=== PATIENT | male | born 1955 | race Caucasian/White ===

== ENCOUNTER 2021-01-23 11:02 | Day surgery (SDC) | payer BC, SELFPAY ==
--- NOTE | 2021-01-09 16:45 | HP_ITS ---
DATE OF SERVICE: 01/23/2021 DATE OF PROPOSED SURGERY: 1. January 23, 2021 for his left foot. 2. February 13, 2021 for his right foot. PREOPERATIVE DIAGNOSES: 1. For January 23 is hallux rigidus, left foot. Planned procedure for that date is López bunionectomy, left. 2. For the date of surgery of February 13, 2021 is hallux rigidus, right foot and planned procedure is López bunionectomy of the right foot. CHIEF COMPLAINT AND HISTORY OF PRESENT ILLNESS: Christopher Carter is a 65-year-old male who relates history of painful, stiff, inflamed great toe joints in bilateral feet, left more advanced than the right, present over the past several years duration. He relates his condition has progressively worsened over time and is aggravated by shoe gear walking activity. Conservative treatment consisting of altered extra-depth shoes as well as rest has proven ineffective and the patient is now requesting surgical treatment. PAST MEDICAL HISTORY: Unremarkable. MEDICATIONS: The patient takes multivitamins, vitamin C, D and zinc. ALLERGIES: THE PATIENT HAS NO KNOWN ALLERGIES OR DRUG SENSITIVITIES. FAMILY HISTORY: Significant for arthritis. SOCIAL HISTORY: The patient denies smoking, denies use of recreational drugs. The patient does drink alcohol typically 1 or 2 drinks per day and typically drinks caffeine 1 to 2 cups of coffee per day. PHYSICAL EXAMINATION: VASCULAR EXAM: The patient displays +2/4 pulses. DP and PT arteries bilateral with normal cap refill time noted in bilateral feet. DERMATOLOGIC EXAM: Reveals intact skin bilateral. ORTHOPEDIC EXAM: Reveals pain on palpation of the dorsal prominent bone, 1st metatarsophalangeal joint bilateral with painful limited range of motion of bilateral first metatarsophalangeal joint. NEUROLOGIC EXAM: Reveals intact sensation. The patient was seen most recently in my office on January 07, 2021. Preoperative informed consent was obtained for his left foot first. Preoperative medical clearance will be provided by Dr. Arnulfo Sy. CAROLA Rodriguez/JAYDEN / [id number]
[2021-01-20 12:01] VITALS: BMI 27.4
--- NOTE | 2021-01-21 10:44 | HO.ANESPROP2 ---
Documented by User: Rose Stern 01/21/21 10:44 HPI - Anesthesia Eval Consult details Narrative: 65yo M for Left López Bunionectomy [facility] Past Medical History Medical History COVID-19 vaccine administered Hx of renal calculi Surgical History Surgical History H/O colonoscopy Hx of shoulder surgery Social History Social History Household Members: None Housing: House Are you a primary care transition coordinator to a significant other at home: No Do you presently have visiting nurse or other home services: No Smoking Status: Former smoker Smoking Quit Date: 2010 Use of substances other than those prescribed or required for medical reasons: No Have you been hit, kicked, punched, or otherwise hurt by someone within the past year? If so, by whom?: No Are you DNR?: No Advance Directives Information Provided: No Recently lost weight without trying: No Eating poorly because of decreased appetite: No Nutrition Risks: No Nutritional Risk Poor oral hygiene: No Meds Allergies Allergy/AdvReac Type Severity Reaction Status Date / Time No Known Allergies Allergy Verified 01/23/21 10:59 [No Known Allergies*] Home Medications Medication Instructions Recorded Confirmed Last Taken Type cholecalciferol (vitamin D3) 10 mcg PO DAILY 01/20/21 01/20/21 Unknown History [Vitamin D3] multivitamin 1 tab PO DAILY 01/20/21 01/20/21 Unknown History Exam Exam Date and Time: January 21, 2021 1044 Height,Weight and Vital Signs: Height 5 ft 6 in Weight 77.111 kg Assessment and Plan Assessment Anesthesia Assessment: Chart Reviewed Documented by User: Abbi Mcgovern 01/23/21 13:08 [facility] Past Medical History Medical History COVID-19 vaccine administered Hx of renal calculi Surgical History Surgical History H/O colonoscopy Hx of shoulder surgery Social History Social History Household Members: None Housing: House Are you a primary care transition coordinator to a significant other at home: No Do you presently have visiting nurse or other home services: No Smoking Status: Former smoker Smoking Quit Date: 2010 Use of substances other than those prescribed or required for medical reasons: No Have you been hit, kicked, punched, or otherwise hurt by someone within the past year? If so, by whom?: No Are you DNR?: No Advance Directives Information Provided: No Recently lost weight without trying: No Eating poorly because of decreased appetite: No Nutrition Risks: No Nutritional Risk Poor oral hygiene: No Meds Allergies Allergy/AdvReac Type Severity Reaction Status Date / Time No Known Allergies Allergy Verified 01/23/21 10:59 [No Known Allergies*] Home Medications Medication Instructions Recorded Confirmed Last Taken Type cholecalciferol (vitamin D3) 10 mcg PO DAILY 01/20/21 01/20/21 Unknown History [Vitamin D3] multivitamin 1 tab PO DAILY 01/20/21 01/20/21 Unknown History Exam Airway Mallampati Class: II TM Dist: >3cm Loose/Missing/Broken Teeth: No Heart: RRR Lungs: CTA Assessment and Plan Assessment Anesthesia Assessment: Anesthesia Plan Discussed and Chart Reviewed Final Anesthetic Review NPO: Yes ASA Class: II Final Preanesthetic Review: Meds/Allgs Chart Reviewed, Consent Obtained/Reviewed and Anes Risks/Benef Reviewed Patient Risk: Low Procedure Risk: Low Anesthetic Plan Anesthetic Plan: MAC: Disposition: Standard PACU
[2021-01-23 11:04] VITALS: BP 131/80; PULSE 67; RESP 20; TEMP 36.4; O2SAT 97
[2021-01-23] MEDS: Lactated Ringers 1,000 ML 50 ML IV (11:23)
--- NOTE | 2021-01-23 11:59 | MHC.SHP ---
Pre-Procedural Eval Section B Chief Complaint: Hallux Rigidus Left foot Allergies: Allergies Allergy/AdvReac Type Severity Reaction Status Date / Time No Known Allergies Allergy Verified 01/23/21 10:59 [No Known Allergies*] Plan I have reviewed the history and physical and performed a pertinent physical examination on my patient. No changes have occurred unless specified.
--- NOTE | 2021-01-23 13:13 | PCN2_ITS ---
Brief Operative Note Date of procedure: 01/23/21 Pre-op diagnosis: hallux rigidus left Post-op diagnosis: same Procedure: kimbrough bunionectomy left Anesthesia: MAC Surgeon: Edgar Montelongo Senior Engineering Associate: Alicia Jensen Estimated blood loss (mL): 1.0 Condition: stable Disposition: PACU
[2021-01-23 13:16] VITALS: BP 125/79; PULSE 69; RESP 16; TEMP 36.6; O2SAT 98
[2021-01-23 13:29] VITALS: BP 151/80; PULSE 62; RESP 18; O2SAT 98
[2021-01-23 13:38] VITALS: BP 138/76; PULSE 57; RESP 18; O2SAT 100
--- NOTE | 2021-01-30 10:45 | OP_ITS ---
SURGEON: Edgar Montelongo DPM PREOPERATIVE DIAGNOSIS: Hallux rigidus, left foot. POSTOPERATIVE DIAGNOSIS: Hallux rigidus, left foot. PROCEDURE PERFORMED: Chang bunionectomy, left foot. ESTIMATED BLOOD LOSS: COMPLICATIONS: ANESTHESIA: Consisted of local administration of a total of 12 mL of an equal mix of 2% lidocaine with epinephrine 1:100,000 and 0.5% Marcaine plain. Intravenous sedation was provided by the anesthesia department. ANESTHESIOLOGIST: Dr. Anti.Dr. Mcgovern. ASSISTANTS: Dr. Jensen. SPECIMENS: INTRODUCTION: The patient was brought to the operating room, placed on the operating table in supine position. After having been suitably anesthetized with local infiltrative anesthesia, the left lower extremity was then prepped and draped in usual sterile manner. Please note that prior to start of the procedure, the left foot was exsanguinated utilizing Esmarch bandage and left ankle tourniquet was inflated to 250 mmHg pressure for the duration of the procedure. CHANG BUNIONECTOMY, LEFT FOOT. Attention was directed to the dorsum of the left foot, where a dorsal linear incision approximately 7 cm in length was effected and centered over the dorsum of the left first metatarsophalangeal joint. The incision was deepened in same plane and hemostasis was acquired as necessary. The skin margins were underscored and retracted. A dorsal linear capsule incision was then effected over the dorsum of the first MTP joint and the capsule and periosteum were underscored and retracted. Please note that there were noted to be several joint osteophytes that were loose on the dorsum of the first metatarsophalangeal joint and these were excised via sharp dissection. Utilizing sagittal saw, the hypertrophic dorsal and medial eminence of the first metatarsal head was resected. A McGlamry elevator was then introduced to free the adhesions along the plantar aspect of the first metatarsal head and then utilizing bone cutting forceps, bone rongeur, hypertrophic bone from the dorsal lateral aspect of the first metatarsal head as well as dorsum medial and lateral aspect of the proximal phalangeal base was effected. The sagittal saw was then reintroduced and first metatarsal head distal aspect was resected in a modified Jose fashion to remove some more redundant bone and damaged cartilage from the articular surface of the first metatarsal head. The power reciprocating rasp was then utilized and then bone was rasped smooth on both the metatarsal and proximal phalangeal base. The surgical site was flushed with sterile saline and then the capsule was closed with 3-0 Dexon. One half of a 3 cm x 3 cm AmnioFix was placed inside the capsule during closure. The subcutaneous tissue was closed with 4-0 Monocryl in a continuous fashion and the skin margins were closed then with a ZipLine [place] wound closure. The second half of the AmnioFix was placed in the deep subcutaneous tissue during skin closure. The operative site was then injected with a total of 5 mL of Marcaine 0.5% plain, 1 mL of dexamethasone phosphate. The operative site was dressed with sterile Betadine-soaked gauze, Kerlix fluffs, 4-inch Conform. The left ankle tourniquet was deflated and normal blood flow was reestablished to the left lower extremity. FINAL DISPOSITION: The patient is discharged to home with instructions for self-care and include the followin. To keep the dressings dry, clean, and intact. 2. To keep the left leg elevated with ice above the ankle. 3. Take all medications as prescribed. 4. To limit activity to minimum. 5. To always use surgical shoe and crutches when ambulating, partial weightbearing left foot. 6. The patient has prescriptions for Motrin or ibuprofen 800 mg total number 90, one p.o. t.i.d. p.c., gabapentin 400 mg total number of 20 to take 1 p.o. daily at bedtime, and lastly prescription for oxycodone 5 mg total number 20 to take 1 p.o. q.6h p.r.n. pain. CAROLA Rodriguez / [id number]
== END 2021-01-23 14:23 | disposition home or self-care (01) ==
PROVIDERS: PCP Internal Medicine Endocrinology, Diabetes & Metabolism; Visit Provider Podiatrist
PROC: (CPT 28292; principal; 2021-01-23 12:40)
DX: M20.22 Hallux rigidus, left foot (principal); M25.775 Osteophyte, left foot; Z87.891 Personal history of nicotine dependence
CPT/HCPCS: 28292; 28122; 88304; 88311; J0690; J1100; J2250; J3010; J3590

== ENCOUNTER 2021-02-13 09:19 | Day surgery (SDC) | payer BC, SELFPAY ==
[2021-01-20 12:09] VITALS: BMI 27.4
--- NOTE | 2021-02-11 17:49 | HP_ITS ---
DATE OF SERVICE: 02/13/2021 DATE OF PROPOSED SURGERY: February 13, 2021. PREOPERATIVE DIAGNOSIS: Hallux rigidus, right foot. PLANNED PROCEDURE: López bunionectomy, right foot. PLANNED ANESTHSIA: MAC anesthesia. Chief complaint, history of present illness, past medical history, medications, allergies, and physical exam are all unchanged from the previous dictation history and physical by myself dated on January 09, 2021. Medical record number, dictation number at that point was [id number]. Please refer to the preoperative medical clearance has been provided by his primary care physician, Dr. Bhavesh Paniagua. CAROLA Rodriguez/JAYDEN / [id number]
--- NOTE | 2021-02-12 11:03 | HO.ANESPROP2 ---
Documented by User: Rose Stern 02/12/21 11:04 HPI - Anesthesia Eval Consult details Narrative: 65yo M for Right López Bunionectomy s/p left López Bunionectomy 01/2021 with MAC PCP cleared COUNTS INCLUDE 234 BEDS AT THE [facility] Past Medical History Medical History COVID-19 vaccine administered Hx of renal calculi Surgical History Surgical History H/O colonoscopy Hx of shoulder surgery Status post left foot surgery Social History Social History Household Members: None Housing: House Are you a primary vision care associate to a significant other at home: No Do you presently have visiting nurse or other home services: No Use of substances other than those prescribed or required for medical reasons: No Have you been hit, kicked, punched, or otherwise hurt by someone within the past year? If so, by whom?: No Are you DNR?: No Advance Directives Information Provided: No Recently lost weight without trying: No Eating poorly because of decreased appetite: No Nutrition Risks: No Nutritional Risk Poor oral hygiene: No Meds Allergies Allergy/AdvReac Type Severity Reaction Status Date / Time No Known Allergies Allergy Verified 02/13/21 09:24 [No Known Allergies*] Home Medications Medication Instructions Recorded Confirmed Last Taken Type cholecalciferol (vitamin D3) 10 mcg PO DAILY 01/20/21 01/20/21 Unknown History [Vitamin D3] multivitamin 1 tab PO DAILY 01/20/21 01/20/21 Unknown History Exam Exam Date and Time: February 12, 2021 1103 Height,Weight and Vital Signs: Height 5 ft 6 in Weight 77.111 kg Assessment and Plan Assessment Anesthesia Assessment: Chart Reviewed Documented by User: Marjorie Daily 02/13/21 10:17 COUNTS INCLUDE 234 BEDS AT THE [facility] Past Medical History Medical History COVID-19 vaccine administered Hx of renal calculi Family History Family history of problems with anesthesia: No Surgical History Surgical History H/O colonoscopy Hx of shoulder surgery Status post left foot surgery History of Problems with Anesthesia: No Social History Social History Household Members: None Housing: House Are you a primary vision care associate to a significant other at home: No Do you presently have visiting nurse or other home services: No Use of substances other than those prescribed or required for medical reasons: No Have you been hit, kicked, punched, or otherwise hurt by someone within the past year? If so, by whom?: No Are you DNR?: No Advance Directives Information Provided: No Recently lost weight without trying: No Eating poorly because of decreased appetite: No Nutrition Risks: No Nutritional Risk Poor oral hygiene: No Meds Allergies Allergy/AdvReac Type Severity Reaction Status Date / Time No Known Allergies Allergy Verified 02/13/21 09:24 [No Known Allergies*] Home Medications Medication Instructions Recorded Confirmed Last Taken Type cholecalciferol (vitamin D3) 10 mcg PO DAILY 01/20/21 01/20/21 Unknown History [Vitamin D3] multivitamin 1 tab PO DAILY 01/20/21 01/20/21 Unknown History Exam Height,Weight and Vital Signs: Vital Signs Temp Pulse Resp BP Pulse Ox 02/13/21 09:27 97.7 F 64 16 138/78 98 Airway Mallampati Class: II TM Dist: >3cm Neck ROM: Full Heart: RRR Lungs: CTAB Assessment and Plan Assessment Anesthesia Assessment: Anesthesia Plan Discussed and Chart Reviewed Final Anesthetic Review NPO: Yes ASA Class: II Final Preanesthetic Review: No Changes in Pt Med Stat, Meds/Allgs Chart Reviewed, Consent Obtained/Reviewed and Anes Risks/Benef Reviewed Patient Risk: Low Procedure Risk: Low Assessment/Block/Sedation in SS: Assess/Block/Sedation-SS Anesthetic Plan Anesthetic Plan: MAC: Disposition: Standard PACU
[2021-02-13 09:27] VITALS: BP 138/78; PULSE 64; RESP 16; TEMP 36.5; O2SAT 98
[2021-02-13] MEDS: Lactated Ringers 1,000 ML 100 ML IVCONT (09:53)
--- NOTE | 2021-02-13 10:05 | MHC.SHP ---
Pre-Procedural Eval Section B Chief Complaint: Hallux Rigidus Right Foot Allergies: Allergies Allergy/AdvReac Type Severity Reaction Status Date / Time No Known Allergies Allergy Verified 02/13/21 09:24 [No Known Allergies*] Plan I have reviewed the history and physical and performed a pertinent physical examination on my patient. No changes have occurred unless specified.
--- NOTE | 2021-02-13 11:06 | PM.PROC ---
Brief Operative Note Date of procedure: 02/13/21 Pre-op diagnosis: hallux rigidus right foot Post-op diagnosis: same Procedure: kimbrough bunionectomy right Anesthesia: MAC Surgeon: Edgar Montelongo Pharmacist Apprentice: Alicia Jensen Estimated blood loss (mL): 1.0 Condition: stable Disposition: PACU
[2021-02-13 11:07] VITALS: BP 117/68; PULSE 69; RESP 16; TEMP 36.2; O2SAT 94
[2021-02-13 11:21] VITALS: BP 147/69; PULSE 66; RESP 16; O2SAT 98
[2021-02-13 11:28] VITALS: TEMP 36.1
--- NOTE | 2021-02-13 21:19 | OP_ITS ---
SURGEON: Edgar Montelongo DPM PREOPERATIVE DIAGNOSIS: Hallux rigidus, right foot. POSTOPERATIVE DIAGNOSIS: Hallux rigidus, right foot. PROCEDURE PERFORMED: Chang bunionectomy of the right foot. ESTIMATED BLOOD LOSS: COMPLICATIONS: ANESTHESIA: Consisted of local administration of a total of 12 mL of an equal mix of 2% lidocaine with epinephrine 1:100,000 and 0.5% Marcaine plain. Intravenous sedation was provided by the Anesthesia Department. ASSISTANTS: Alicia Jensen DPM. SPECIMENS: INTRODUCTION: The patient was brought to the operating room and placed on the operating table in supine position. After having been suitably anesthetized with local infiltrative anesthesia, the right lower extremity was then prepped and draped in the usual sterile manner. Please note that prior to start of the procedure, the right foot was exsanguinated utilizing Esmarch bandage and right ankle tourniquet was inflated to 250 mmHg pressure for the duration of the procedure. CHANG BUNIONECTOMY OF THE RIGHT FOOT. Attention was directed to the dorsum of the right first metatarsophalangeal joint, where a dorsal linear incision approximately 6 cm in length was effected and centered over the dorsum of the right first metatarsophalangeal joint. The incision was deepened in the same plane and hemostasis was acquired as necessary. Skin margins were underscored and retracted. A dorsal linear capsule incision was then effected and the capsule and periosteal structures were underscored and retracted. The hypertrophic medial eminence was resected utilizing a sagittal saw. Hypertrophic bone and damaged cartilage on the dorsal aspect of the first metatarsal head were then resected in a modified Jose fashion. Utilizing a combination of bone saw, bone cutting forceps, rongeur, the remaining sharp edges of bone were mottled and removed from both the dorsal medial and dorsal lateral aspects of both the metatarsal head and the base of the proximal phalanx. Utilizing a power reciprocating rasp, the remaining bone was rasped smooth. Attention was now directed to the first intermetatarsal space, where a lateral capsulotomy and adductor tenotomy were performed via sharp dissection. The wound was irrigated with copious amounts of sterile saline. The capsule and periosteum were then closed with 3-0 Vicryl, one half of a 3 x 3 cm AmnioFix was placed inside the capsule during closure. Subcutaneous tissue was closed with 4-0 Maxon subcuticular with the second half of the AmnioFix being placed in the subcutaneous tissue. The skin margins were then further reinforced utilizing the [place] ZipLine skin closure. The surgical site was injected with a total of 5 mL of 0.5% Marcaine plain and then 1 mL of dexamethasone phosphate. The patient tolerated the surgery and anesthesia well, and left the operating room via cart to the recovery room with vital signs stable. FINAL DISPOSITION: The patient is instructed to rest, elevate his right lower extremity, take all medications as prescribed. Limit activity to minimum and utilize crutches, partial weightbearing on the right foot when he ambulating. CAROLA Rodriguez/JAYDEN / [id number]
== END 2021-02-13 12:17 ==
LOC: HO.SSS 09:20
PROVIDERS: PCP Internal Medicine Endocrinology, Diabetes & Metabolism; Visit Provider Podiatrist
PROC: (CPT 28292; principal; 2021-02-13 10:50)
DX: M20.21 Hallux rigidus, right foot (principal); Z87.891 Personal history of nicotine dependence
CPT/HCPCS: 28292; 88304; 88311; J0690; J1100; J2250; J3590